=== PATIENT | female | born 2000 | race African-American/Black ===

== ENCOUNTER 2022-07-05 02:29 | Emergency (ER) | payer OTHER ==
[2022-07-05] MEDS ORDERED: predniSONE 20 MG TAB ONE (03:01)
== END 2022-07-05 03:53 | disposition home or self-care (01) ==
LOC: CSHERS 02:29
DX: R05.9 Cough, unspecified (principal); R06.00 Dyspnea, unspecified
CPT/HCPCS: 71045; 94640; J7512; J7620